=== PATIENT | male | born 1955 | race Caucasian/White ===

== ENCOUNTER 2017-06-02 14:58 | Emergency (ER) | payer OTHER ==
[2017-06-02 15:01] VITALS: BP 142/75; PULSE 75; RESP 20; O2SAT 98
[2017-06-02] MEDS ORDERED: HYDR25TA4 PO (15:23)
[2017-06-02] MEDS ORDERED: ZLP10T PO (15:23)
[2017-06-02] MEDS ORDERED: METO100T3 PO (15:23)
[2017-06-02] MEDS ORDERED: Tetracaine 0.5% 4 mL Ophthalmic Solution ONE (15:33)
[2017-06-02] MEDS ORDERED: Fluorescein 0.6 mg Ophthalmic Strip ONE (15:33)
[2017-06-02] MEDS ORDERED: 0.9% Sodium Chloride Inhalation Solution ONE (15:33)
--- NOTE | 2017-06-02 15:49 | ED.REPORT ---
HPI-Eye Problem Date of Service Jun 02, 2017 ED Provider: Bjorn Sykes PA-C Jacob is an otherwise healthy 62-year-old male patient with a chief complaint of "right eyes glazed over." Reports a 3 week history of increased right eye discharge increasing over the last 2 days. Reports clear drainage, no purulence or crusting. Denies pain, reduced visual acuity, halos, photophobia, trauma, grinding, hammering, history of shingles, or other symptoms. Reports he had similar symptoms approximately 3 years ago which are treated with steroids and possibly gentamicin. He believes it was a lacrimal duct problem. Nursing Notes Stated Complaint: RIGHT EYE IRRITATION Chief Complaint: Eye Nursing Notes Reviewed: Yes Allergies: Coded Allergies: No Known Allergies (Unverified , 06/02/17) Scheduled Fluorometholone (Fluorometholone) 5 Ml Drops.susp 5 ML RIGHT_EYE DIRECTED Apply 1 drop in right eye 4 times a day for 4 days. Then apply 1 drop right eye 2 times a day for 4 days. Hydrochlorothiazide (Hydrochlorothiazide) 25 Mg Tablet 25 MG PO DAILY Metoprolol Tartrate (Metoprolol Tartrate) 100 Mg Tablet 100 MG PO BID Scheduled PRN Zolpidem (Ambien) 10 Mg Tablet 10 MG PO HS PRN PRN For Insomnia General Time Seen by MD: 15:21 Chief Complaint Right eye affected Past Medical History Past Medical History Notes: Denies Review of Systems Review of Systems Note: Negative unless stated otherwise in history of present illness Physical Exam General: Well appearing, well developed, well nourished, no acute distress. Head: Atraumatic, normocephalic. Right eye: Increased injection in the medial aspect of the conjunctiva. Slight clear discharge. No foreign bodies noted on lid eversion. No redness or swelling in the legs. Anterior chambers clear. PERRL, EOMI. Slit-lamp examination is normal, floor seen standing with lamp reveals no areas of focal uptake. Visual acuity is 20/30 bilaterally. Eyes: No scleral icterus or injection. No discharge. Vision grossly intact. ENT: Voice clear, hearing grossly intact. Respiratory: No respiratory distress, no increased work of breathing. Speaks in complete sentences. Skin: Warm and dry. Neurological: Grossly nonfocal. Psychological: alert and oriented. Speech appropriate, linear and logical. Behavior appropriate. Initial Vital Signs Vital Signs (First) Date Time Temp Pulse Resp B/P Pulse Ox O2 Delivery O2 Flow Rate FiO2 06/02/17 15:01 75 20 142/75 98 Room Air 06/02/17 16:30 36.6 Normal Re-Eval/Medical Decision Med Decision/Clinical Course Otherwise healthy 62-year-old male presents with chief complaint of right eye watering. Present for approximately 3 weeks, worsening in the last several days. Denies other symptoms. Admits to similar symptoms previously, treated with gentamicin and steroids. Physical examination reveals slight injection of the conjunctiva on the medial portion of the right eye, slight watery discharge. Eye examination is otherwise normal. Negative Blandon sign or lesions in the ear canals. At this point I have low concern for trauma, glaucoma, infective keratitis, herpes zoster, bacterial conjunctivitis, viral conjunctivitis, allergic conjunctivitis. I discussed the case extensively with , who will make himself available on Sunday for follow-up. He believes this is most likely lacrimal duct dysfunction. Patient has stated that his schedule will likely not allow him to make this appointment. Dr. Ann recommends a mild steroid which can be prescribed. I discussed this with the patient, recommending that he follow up with ophthalmology and providing the prescription for steroids. I also discussed the risks and benefits of ophthalmic steroids. Provide emergent return precautions. Patient verbalizes understanding of and consent to the plan. Consultation : Referral / Consult Name: Ricardo Ann MD Consulted With: Color Grinder Call Returned at: 16:02 Note: Suggests being seen in the office on Sunday for further evaluation. If this is not possible he feels that fluoromethasone 0.1% applied 4 times a day to the eye for 4 days and then 2 times a day to the eye for 4 days could be helpful. Discharge & Departure Primary Impression: Lacrimal system disorder Disposition: Home Discharge Condition All VS Reviewed: Yes Condition: Stable Additional Instructions: Evaluation for right eye discharge in the emergency department includes an interview and physical examination, which suggested to have some dysfunction in your lacrimal duct. There is no indication of an infection or trauma. I discussed her case with Dr. Ann, our steel inspector. He will be available to be seen on Sunday, and recommended to come in for an evaluation. Understanding that this might not be possible, he also suggests we prescribe a mild steroid which he may find helpful for this condition. I have done this according to his instructions. I recommend that you follow up with on Sunday. Return to emergency department for any new or worsening symptoms including changes in your vision, increasing eye pain. Referrals: NOPCP (PCP) Ricardo Ann MD EDSupervising Provider for APC: Srinivasa Rojas DO copies to: Ricardo Ann MD, Seth PA-C Jun 02, 2017 15:49
[2017-06-02] MEDS ORDERED: FLUO5DRO7 RIGHT_EYE (16:25)
[2017-06-02 16:30] VITALS: BP 136/70; PULSE 77; RESP 18; O2SAT 98
== END 2017-06-02 16:31 | disposition home or self-care (01) ==
LOC: SED 14:58
DX: H04.89 Other disorders of lacrimal system (principal)